=== PATIENT | male | born 1985 | race Two or more races ===

== ENCOUNTER 2020-09-21 09:37 | Day surgery (SDC) | payer OTHER ==
[~2020-09-21] VITALS: Ht 177.8 cm; Wt 82.6 kg
[2020-09-21] MEDS ORDERED: ceFAZolin 1GM/50ML 50 ML IV ONE (10:16)
[2020-09-21] MEDS ORDERED: MIDAZOLAM HCL 2MG/2ML 2ml VIAL (1mg/ml) ONE ×2 (12:50→15:39)
[2020-09-21] MEDS ORDERED: fentaNYL CITRATE 100 MCG/2 ML VL ONE (12:50)
[2020-09-21] MEDS ORDERED: ALBUTEROL SULF 2.5 MG/0.5ML(0.5%) NEB SOLN NEB STA (12:56)
[2020-09-21] MEDS ORDERED: PROPOFOL 10 MG/ML 20 ML IV ONE (13:33)
[2020-09-21] MEDS ORDERED: ALBUTEROL SULF 2.5 MG/0.5ML(0.5%) NEB SOLN NEB ONE (13:45)
[2020-09-21] MEDS ORDERED: IPRATROPIUM BROM 0.5 MG/2.5ML INH SOL NEB ONE (13:45)
[2020-09-21] MEDS ORDERED: ALBUTEROL SULF 2.5 MG/0.5ML(0.5%) NEB SOLN ONE (13:52)
[2020-09-21] MEDS ORDERED: IPRATROPIUM BROM 0.5 MG/2.5ML INH SOL ONE (13:52)
[2020-09-21 14:05] VITALS: BP 112/78
[2020-09-21] MEDS ORDERED: ONDANSETRON HCL 4 MG/2 ML VIAL IV PRN (15:30)
[2020-09-21] MEDS ORDERED: fentaNYL CITRATE 5 ML ONE (15:39)
== END 2020-09-21 14:20 | disposition home or self-care (01) ==
LOC: SUR 09:37
PROVIDERS: ATTEND Orthopaedic Surgery Adult Reconstructive Orthopaedic Surgery
DX: M20.011 Mallet finger of right finger(s) (principal); I25.10 Atherosclerotic heart disease of native coronary artery without angina pectoris; I10 Essential (primary) hypertension; J45.909 Unspecified asthma, uncomplicated; Z98.890 Other specified postprocedural states; Z79.899 Other long term (current) drug therapy
CPT/HCPCS: 26742; 73140; 76000; 94640; C1713; J0690; J2250; J2704; J3010; J7644